=== PATIENT | female | born 2000 | race Caucasian/White ===

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

== ENCOUNTER 2024-05-31 18:55 | Emergency (ER) | payer BC ==
[~2024-05-31] VITALS: Ht 172.7 cm; Wt 90.9 kg
[~2024-05-31 18:55] MED LIST changes: +AMOXICILLIN 8751 TAB PO; +POLYMYXIN B/TRIMETH OU
[2024-05-31] MEDS ORDERED: NS 50 ML IV SCH (20:10)
[2024-05-31] MEDS ORDERED: Iohexol 300 - 100 ML VIAL IV ONE (20:10)
[2024-05-31 20:31] LABS: BASO # 0.1 K/mm3 (0.0-0.2); BASO % 0.5 % (0.0-2.0); EOS # 0.2 K/mm3 (0.0-0.7); EOS % 1.1 % (0.0-4.0); GRAN # 8.7 K/mm3 (1.4-6.5); GRAN % 61.4 % (42.2-75.2); HEMATOCRIT 38.4 % (37.0-47.0); HEMOGLOBIN 13.8 g/dl (12.5-16.0); LYMPH # 4.3 K/mm3 (1.2-3.4); LYMPH % 30.5 % (20.0-51.0); MEAN CELL VOLUME 87 fl (80.0-100.0); MEAN CORPUSCULAR HEMOGLOBIN 31 pg (27-31); MEAN CORPUSCULAR HGB CONC 36 g/dl (33.0-37.0); MEAN PLATELET VOLUME 9.4 fl (7.4-10.4); MONO # 0.9 K/mm3 (0.1-0.6); MONO % 6.1 % (1.7-9.3); PLATELET COUNT 367 K/mm3 (130-400); RED BLOOD COUNT 4.44 M/mm3 (4.10-5.30)
[2024-05-31 20:48] LABS: CREATININE, serum 0.69 mg/dL (0.57-1.11)
[2024-05-31] MEDS ORDERED: AMOXICILLIN 8751 TAB PO (20:56)
[2024-05-31] MEDS ORDERED: dexAMETHasone 10 MG/ML VIAL PO ONE (21:00)
[2024-05-31 21:13] VITALS: BP 146/86; PULSE 80; TEMP 98.4
== END 2024-05-31 21:13 | disposition home or self-care (01) ==
LOC: COL.ER 18:55
PROVIDERS: Emergency Medicine
DX: R59.0 Localized enlarged lymph nodes (principal); H66.92 Otitis media, unspecified, left ear
CPT/HCPCS: J1100; Q9967